=== PATIENT | female | born 1985 | race Caucasian/White ===

== ENCOUNTER 2022-12-20 07:31 | Day surgery (SDC) | payer OTHER, SELFPAY ==
[2022-12-20 07:53] VITALS: BMI 33.5
[2022-12-20 07:53] LABS: Ur HCG Qualitative* Negative (Negative)
[2022-12-20 08:07] VITALS: BP 124/83; PULSE 107; RESP 16; TEMP 37.1; O2SAT 97
[2022-12-20] MEDS: SODIUM CHLORIDE 0.9 % (FLUSH) 10 ML SYRINGE IVF (08:15)
[2022-12-20] MEDS: LACTATED RINGERS 1000 ML 1,000 ML 100 ML IV (08:15)
--- NOTE | 2022-12-20 08:55 | SUR.OPER ---
Patient positioned supine on OR #4 bed. Pt. legs then moved into the lithotomy position for the procedure. Perioperative team supported arms bilaterally on arm boards. ? Final approval of positioning by surgeon.
[2022-12-20] MEDS: FERRIC SUBSULFATE 8 GM VIAL 1 VIAL TOPICAL (09:35)
--- NOTE | 2022-12-20 09:47 | P.PCN_ITS ---
Procedure Note Date Seen: 12/20/22 Date of procedure: 12/20/22 Will [facility] bill your pro fee for this procedure?: Yes Procedure: Preoperative diagnosis: 37-year-old nulligravid woman with a history of ASCUS Pap with positive HPV in 2019. No follow-up due to severe anxiety with Pap smears or pelvic exams. Postoperative diagnosis: Same Procedure: Pap smear, colposcopy with 2 cervical biopsies, endocervical curetting all under anesthesia. Anesthesia: MAC Surgeon: Selena Avendano MD IV Fluid: 800 mL Estimated blood loss: 10 mL Specimen: Pap smear: Diagnostic with HPV Co-testing. A: Cervical biopsy at 9 o'clock. B: Cervical biopsy at 11 o'clock. C: ECC. Findings: External genitalia, urethral meatus, [place]'s and Bartholin's glands all appear normal. She has 2 small inclusion cysts on the labia majora 1 at the upper right and 1 in the mid left. Vaginal canal and cervix appear normal. There was no evidence of vaginal bleeding or abnormal vaginal discharge. The cervix has a friable ectropion but no mass identified. After application of ascetic acid there was thin aceto-white change noted at the 9 and 11 o'clock positions on the cervix. No mosaicism, neovascularization or punctation with use of the green filter. Procedure: Miriam was taken to the operating room where conscious sedation was found be adequate. She was placed in the dorsal lithotomy position and a sterile, bivalve, metal speculum was inserted into the vaginal canal to visualize the cervix. Ascetic acid was applied to the cervix and a colposcopy performed. Thin aceto white change noted as described in the findings above. Two biopsies with the Tischler biopsy forceps were obtained. An ECC was then performed. Monsel's solution was applied and the biopsy sites and ectropion then cauterized with bipolar cautery to obtain hemostasis. Sponge, lap and instrument counts were correct x2 at the end of the procedure the patient was taken to the recovery room stable condition. Anesthesia: MAC Surgeon: Selena Avendano MD Estimated blood loss (mL): 10 IV fluids (mL): 800 Pathology: specimen obtained, sent to pathology Condition: stable Disposition: same day
[2022-12-20 09:50] VITALS: BP 111/61; PULSE 93; RESP 16; TEMP 36.8; O2SAT 96
--- NOTE | 2022-12-20 09:59 | W.PM.H&PU ---
History & Physical Update History & Physical Update H&P Reviewed and patient assessed: The following changes are noted below H&P Updates: Chest: Clear to auscultation bilaterally. Heart: Regular rate and rhythm without gallop, rub or murmur.
[2022-12-20 10:00] VITALS: BP 106/59; PULSE 88; RESP 16; O2SAT 97
--- NOTE | 2022-12-20 10:01 | W.ANESCHARGE ---
Anesthesia Charges Start Date/Time Anesthesia Start Date: 12/20/22 Anesthesia Start Time: 09:13 Stop Date/Time Anesthesia Stop Date: 12/20/22 Anesthesia Stop Time: 09:51
[2022-12-20 10:15] VITALS: BP 107/62; PULSE 88; RESP 16; O2SAT 97
[2022-12-20 10:30] VITALS: BP 106/60; PULSE 87; RESP 16; O2SAT 97
[2022-12-20 10:45] VITALS: BP 97/51; PULSE 82; RESP 16; O2SAT 95
--- NOTE | 2022-12-20 11:22 | W.ANESCHARGE ---
Anesthesia Charges Start Date/Time Anesthesia Start Date: 12/20/22 Anesthesia Start Time: 09:13 Stop Date/Time Anesthesia Stop Date: 12/20/22 Anesthesia Stop Time: 09:51
== END 2022-12-20 11:20 | disposition home or self-care (01) ==
PROVIDERS: Visit Provider Obstetrics & Gynecology
PROC: 0UJH8ZZ Inspection of Vagina and Cul-de-sac, Via Natural or Artificial Opening Endoscopic (ICD-10-PCS; CPT 57454; principal; 2022-12-20 08:45)
DX: N72 Inflammatory disease of cervix uteri (principal); Z87.410 Personal history of cervical dysplasia; Z87.42 Personal history of other diseases of the female genital tract; F41.9 Anxiety disorder, unspecified
CPT/HCPCS: 57454; 00940; 81025; 88305; J1100; J1885; J2250; J2405; J2704; J3010; J3490; J7120

== ENCOUNTER 2024-06-27 06:02 | Day surgery (SDC) | payer OTHER, SELFPAY ==
[2024-06-27] VITALS (7 sets, daily range): BP systolic 103–135; BP diastolic 58–90; PULSE 83–98; RESP 16; TEMP 36.6–36.9; O2SAT 92–97; BMI 31.8
[2024-06-27 06:25] LABS: Ur HCG Qualitative* Negative (Negative)
[2024-06-27] MEDS: SODIUM CHLORIDE 0.9 % (FLUSH) 10 ML SYRINGE IVF (06:40)
[2024-06-27] MEDS: 0.9 % SODIUM CHLORIDE 500 ML 500 ML 100 ML IV (06:40)
[2024-06-27] MEDS: FERRIC SUBSULFATE 8 GM VIAL 1 VIAL TOPICAL (07:39)
--- NOTE | 2024-06-27 07:50 | PM.PROC ---
Procedure Note Time Seen by Provider: 07:51 Date Seen: 06/27/24 Will [facility] bill your pro fee for this procedure?: Yes Procedure: Subjective: Miriam is a 39-year-old 0, para 0 who presents today for a colposcopy. She has had a colposcopy before. I reviewed HPV pathophysiology and how it causes cervical dysplasia which can progress on to malignancy. I reviewed recommendations for follow-up with different stages of dysplasia reach reviewing grade 1, grade 2 and grade 3 recommendations for treatment and/or future screening. She was given 3 ACOG pamphlets on: Abnormal Pap smears, colposcopy and LEEP. I reviewed what her Pap smear showed and why we recommend a colposcopy with that type of Pap smear she had. I reviewed how colposcopy is performed and what she should expect over the next few days with vaginal bleeding and/or unusual discharge after colposcopy and biopsy. All of her questions were answered. This discussion took 10 min of time. This procedure is done under anesthesia due to patient history of PTSD. See previous notes for full details. Pap smear history: . 04/2019: Ascus, positive HPV 2. 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 Colposcopy biopsies both showed chronic cervicitis and 1 biopsy showed focal atypia. She was treated with 2 weeks of doxycycline 100 mg p.o. b.i.d. 3. 06/27/2024: Procedure today Pap with HPV, colposcopy and ECC under anesthesia. History: Smoker: Lifetime nonsmoker Sexual history: number of lifetime partners greater than 5, male Contraception: Oral contraceptive pills History of sexually transmitted infections: No Other pertinent history: PTSD from multiple pelvic exams as a teenager required to get her control prescription. Objective: General: Miriam is a pleasant, well groomed, woman in no acute distress. Vital signs; included in her medical record above. Psychiatric: Normal affect and speech pattern. Alert oriented x3. Procedure: A urine test was performed, result: Negative. The patient was taken to the operating room conscious sedation was found be adequate. The patient was placed in the dorsal lithotomy position. Her external genitalia, urethral meatus, [place]'s and Bartholin's glands all appear normal. There is hyperpigmentation of bilateral mid labia minora the inferior aspects of both labia minora. This is stable from last year. A sterile, bivalve, metal speculum was placed in the vaginal canal and both the vagina and cervix appear normal. Ascetic acid was then applied to the cervix and a colposcopy performed. Aceto-white change visualized: Yes thin, at the 3 and 6 o'clock position(s). Colposcopy satisfactory: Yes, squamocolumnar junction was visualized circumferentially around the cervical os. A Pap smear was collected. Mosaicism: No Punctation: No Stanley-vascularization: No Biopsy (ies): Yes. A: 6 o'clock. B: 3 o'clock. ECC: Yes Monsel's solution was applied to obtain hemostasis. Assessment: Colposcopy for LGSIL pap with positive HPV, other high risk types Plan: Will follow up on pathology report: 1. If no evidence of dysplasia or CT 1 will recommend repeat Pap with HPV in [address] would recommend a cone biopsy most likely a LEEP. Anesthesia: MAC Condition: stable Disposition: same day
--- NOTE | 2024-06-27 07:59 | P.ANES_ITS ---
Anesthesia Charges Start Date/Time Anesthesia Start Date: 06/27/24 Anesthesia Start Time: 07:21 Stop Date/Time Anesthesia Stop Date: 06/27/24 Anesthesia Stop Time: 08:00 Coding CPT Codes CPT Codes: ANESTH VAGINAL PROCEDURES - 95966 ([id number]) P2 - PATIENT W/MILD SYST DISEASE, QK - FORM BUILDER HELPER 2-4 CNCRNT ANES PROC, QX - ALLIANCE MANAGER SVC W/ MD MED DIRECTION
--- NOTE | 2024-06-27 07:59 | W.ANESCHARGE ---
Anesthesia Charges Start Date/Time Anesthesia Start Date: 06/27/24 Anesthesia Start Time: 07:21 Stop Date/Time Anesthesia Stop Date: 06/27/24 Anesthesia Stop Time: 08:00 Coding CPT Codes CPT Codes: ANESTH VAGINAL PROCEDURES - 13918 ([id number]) P2 - PATIENT W/MILD SYST DISEASE, QK - APARTMENT MAINTENANCE TECHNICIAN 2-4 CNCRNT ANES PROC, QX - WHEEL LOADER OPERATOR SVC W/ MD MED DIRECTION
--- NOTE | 2024-06-27 08:36 | P.ANES_ITS ---
Anesthesia Charges Start Date/Time Anesthesia Start Date: 06/27/24 Anesthesia Start Time: 07:21 Stop Date/Time Anesthesia Stop Date: 06/27/24 Anesthesia Stop Time: 08:00 Coding CPT Codes CPT Codes: ANESTH VAGINAL PROCEDURES - 93768 ([id number]) QK - CHUCKER 2-4 CNCRNT ANES PROC, QX - SIDE FRAMER SVC W/ MD MED DIRECTION, P2 - PATIENT W/MILD SYST DISEASE
--- NOTE | 2024-06-27 08:36 | W.ANESCHARGE ---
Anesthesia Charges Start Date/Time Anesthesia Start Date: 06/27/24 Anesthesia Start Time: 07:21 Stop Date/Time Anesthesia Stop Date: 06/27/24 Anesthesia Stop Time: 08:00 Coding CPT Codes CPT Codes: ANESTH VAGINAL PROCEDURES - 97038 ([id number]) QK - STOCK SAW OPERATOR 2-4 CNCRNT ANES PROC, QX - AUTOMOTIVE INTERNET SALES CONSULTANT SVC W/ MD MED DIRECTION, P2 - PATIENT W/MILD SYST DISEASE
--- NOTE | 2024-06-27 08:42 | SUR.PHASEII ---
Patient tolerating toast and apple juice.
[2024-06-29 19:12] LABS: HPV Source Endocervical; HPV, High Risk by TMA Not Detected
[2024-07-10 14:06] LABS: Pap Test Reviewed by Path Done
== END 2024-06-27 09:50 | disposition home or self-care (01) ==
PROVIDERS: Visit Provider Obstetrics & Gynecology
PROC: 0UJH8ZZ Inspection of Vagina and Cul-de-sac, Via Natural or Artificial Opening Endoscopic (ICD-10-PCS; CPT 57454; principal; 2024-06-27 07:15)
DX: R87.612 Low grade squamous intraepithelial lesion on cytologic smear of cervix (LGSIL) (principal); R87.810 Cervical high risk human papillomavirus (HPV) DNA test positive; F43.10 Post-traumatic stress disorder, unspecified
CPT/HCPCS: 57454; 00940; 81025; 87624; 87625; 88141; 88142; 88305; 88342; J1100; J1885; J2250; J2405; J2704; J3010; J3490; J7030